=== PATIENT | male | born 1995 | race Caucasian/White ===

== ENCOUNTER 2016-12-13 01:37 | Emergency (ER) | payer OTHER ==
[~2016-12-13] VITALS: Ht 162.6 cm; Wt 53.5 kg
[~2016-12-13 01:37] MED LIST: ALPR0.5T PO; DIVA500T7 PO; ZIPR40CA2 PO
[2016-12-13 01:40] VITALS: Ht 162.6 cm; Wt 53.5 kg
--- NOTE | 2016-12-13 01:55 | ERD ---
ER Documentation Chief Complaint Chief Complaint Dizziness HPI The patient is a 21-year-old male, presenting to the ER because of dizziness after he took his mother marijuana and PCP pill around 9 PM. He took a bus to the hospital. He denies syncope, near syncope, neck pain, chest pain, dyspnea, abdominal pain. He smokes socially has history of amphetamine abuse, denies drinking Past medical history: Schizophrenia Past surgical history: None ROS All systems reviewed and are negative except as per history of present illness. Medications Home Meds Active Scripts Ziprasidone* (Geodon*) 40 Mg Capsule, 40 MG PO BID, #30 CAP Prov:WINSTON LYTHIA 01/28/16 Divalproex Sodium* (Depakote*) 500 Mg Tablet.dr, 500 MG PO BID, #30 TAB Prov:TIGRE LY 01/28/16 Alprazolam* (Xanax*) 0.5 Mg Tab, 0.5 MG PO Q8H Y for ANXIETY, #14 TAB Prov:LOLLY BARON DO 10/23/15 Reported Medications Divalproex Sodium* (Depakote ER*) 500 Mg Tabsr, 1000 MG PO DAILY, #60 TAB.SA 09/11/15 Allergies Allergies: Coded Allergies: chocolate flavor (Verified Allergy, Unknown, "twitching", 09/20/15) peanut (Verified Allergy, Unknown, "twitching", 09/20/15) trazodone (Verified Allergy, Unknown, 01/25/16) PMhx/Soc History of Surgery: No Anesthesia Reaction: No Hx Neurological Disorder: No Hx Respiratory Disorders: No Hx Cardiac Disorders: No Hx Psychiatric Problems: Yes (Schizophrenia) Hx Miscellaneous Medical Probl: No Hx Alcohol Use: Yes Hx Substance Use: Yes (Marijuana, Cocaine) Hx Tobacco Use: Yes Physical Exam Vitals Vital Signs Date Time Temp Pulse Resp B/P Pulse Ox O2 Delivery O2 Flow Rate FiO2 12/13/16 01:40 96.9 85 20 129/65 98 Physical Exam Const: No acute distress. Head: Atraumatic. Eyes: Normal Conjunctiva. ENT: Normal External Ears, Nose and Mouth. Neck: Full range of motion. No meningismus. Resp: Clear to auscultation bilaterally. Cardio: Regular rate and rhythm. Abd: Soft, non distended, normal bowel sounds, non tender. Skin: No petechiae or rashes. Back: No midline or flank tenderness. Ext: No cyanosis, or edema. Neur: Awake and alert. No focal deficit Psych: Normal Mood and Affect. Result Diagram: 12/13/1621912/13/16219 Results 24 hrs Laboratory Tests Test 12/13/16 02:20 12/13/16 03:20 White Blood Count 7.510^3/ul Red Blood Count 4.4310^6/ul Hemoglobin 12.3g/dl Hematocrit 37.2% Mean Corpuscular Volume 84.0fl Mean Corpuscular Hemoglobin 27.8pg Mean Corpuscular Hemoglobin Concent 33.1g/dl Red Cell Distribution Width 14.6% Platelet Count 54542^3/UL Mean Platelet Volume 10.2fl Neutrophils % 46.9% Lymphocytes % 42.0% Monocytes % 8.1% Eosinophils % 2.3% Basophils % 0.4% Nucleated Red Blood Cells % 0.0/100WBC Neutrophils # 3.510^3/ul Lymphocytes # 3.210^3/ul Monocytes # 0.610^3/ul Eosinophils # 0.210^3/ul Basophils # 0.010^3/ul Nucleated Red Blood Cells # 0.010^3/ul Sodium Level 140mmol/L Potassium Level 3.9mmol/L Chloride Level 105mmol/L Carbon Dioxide Level 25mmol/L Anion Gap 14 Blood Urea Nitrogen 23mg/dl Creatinine 0.86mg/dl Glucose Level 101mg/dl Calcium Level 9.1mg/dl Ethyl Alcohol Level < 10.0mg/dl Urine Opiates Screen Negative Urine Barbiturates Negative Urine Amphetamines Screen Negative Urine Benzodiazepines Screen Negative Urine Cocaine Screen Negative Urine Cannabinoids Negative Current Medications Medications (Trade) Dose Ordered Sig/Sandy Route PRN Reason Start Time Stop Time Status Last Admin Dose Admin Sodium Chloride (NS) 1,000 ml @ 1,000 mls/hr Q1H ONCE IV 12/13/16 02:30 12/13/16 03:29 DC 12/13/16 02:24 Meclizine HCl (Antivert) 25 mg ONCE ONCE PO 12/13/16 02:30 12/13/16 02:31 DC 12/13/16 02:58 Procedures/MDM EKG: Read by emergency physician Rate/Rhythm: Normal Sinus Rhythm 74 beats/min QRS, ST, T-waves: No ST elevation, no T inversion Impression: Normal EKG MEDICAL MAKING DECISION: The patient is a 21-year-old male, presenting with acute dizziness unclear etiology he was treated with 1 L normal saline for clinical dehydration, Antivert 25 mg p.o. for dizziness with good response. The differential diagnoses considered include but are not limited to dehydration , electrolyte imbalance, psychiatric illness, anxiety attack, panic attack Departure Diagnosis: Primary Impression: Dizziness Additional Impressions: Dehydration Anemia Condition: Good Comments I discussed the findings with the patient. I advised the patient to follow-up with the primary physician in about 1-2 days, sooner if needed and return if any concern. VARUN FARRIS MD Dec 13, 2016 01:55
[2016-12-13] MEDS ORDERED: MECLIZINE 12.5 MG TAB PO ONE (02:30)
[2016-12-13] MEDS ORDERED: SOD CHLORIDE 0.9% 1,000 ML IV ONE (02:30)
[2016-12-13 02:48] LABS: BASOPHILS % 0.4 % (0.0-2.0); EOSINOPHILS # 0.2 10^3/ul (0.0-0.5); EOSINOPHILS % 2.3 % (0.0-7.0); HEMATOCRIT 37.2 % (42.0-52.0); HEMOGLOBIN 12.3 g/dl (14.0-18.0); LYMPHOCYTES # 3.2 10^3/ul (0.8-2.9); MEAN CORPUSCULAR HEMOGLOBIN 27.8 pg (29.0-33.0); MEAN CORPUSCULAR HGB CONC 33.1 g/dl (32.0-37.0); MEAN PLATELET VOLUME 10.2 fl (7.4-10.4); MONOCYTE # 0.6 10^3/ul (0.3-0.9); MONOCYTES % 8.1 % (0.0-11.0); NEUTROPHIL # 3.5 10^3/ul (1.6-7.5); NEUTROPHILS % 46.9 % (39.0-77.0); PLATELET COUNT 207 10^3/UL (140-415); RED BLOOD COUNT 4.43 10^6/ul (4.70-6.10); RED CELL DISTRIBUTION WIDTH 14.6 % (11.5-14.5); WHITE BLOOD COUNT 7.5 10^3/ul (4.8-10.8)
[2016-12-13 03:09] LABS: ANION GAP 14 (8-16); BLOOD UREA NITROGEN 23 mg/dl (7-20); CALCIUM 9.1 mg/dl (8.4-10.2); CARBON DIOXIDE 25 mmol/L (21-31); CHLORIDE 105 mmol/L (97-110); CREATININE 0.86 mg/dl (0.61-1.24); GLUCOSE 101 mg/dl (70-220); POTASSIUM 3.9 mmol/L (3.5-5.1); SODIUM 140 mmol/L (135-144)
[2016-12-13 03:43] LABS: ETHANOL < 10.0 mg/dl
[2016-12-13 04:22] LABS: BARBITURATES Negative (NEGATIVE); BENZODIAZEPINES Negative (NEGATIVE); CANNABINOIDS Negative (NEGATIVE); COCAINE Negative (NEGATIVE); OPIATES Negative (NEGATIVE)
[2016-12-13 04:45] VITALS: BP 123/59; PULSE 68; RESP 20; TEMP 98.3
== END 2016-12-13 04:46 | disposition home or self-care (01) ==
LOC: E/R 01:37
DX: R42 Dizziness and giddiness (principal); E86.0 Dehydration; D64.9 Anemia, unspecified; Z87.891 Personal history of nicotine dependence
CPT/HCPCS: 80048; 80306; 80307; 85025; 96360; J7030; Z7502; Z7610; 93005

== ENCOUNTER 2017-01-12 17:33 | Emergency (ER) | payer OTHER ==
[~2017-01-12] VITALS: Ht 165.1 cm; Wt 53.0 kg
[2017-01-12 17:34] VITALS: Ht 165.1 cm; Wt 53.0 kg
[2017-01-12] MEDS ORDERED: OLANZAPINE (ODT) 5 MG TAB ODT ONE (18:00)
[2017-01-12] MEDS ORDERED: LORAZEPAM 1 MG TAB PO ONE (18:00)
[2017-01-12 18:28] LABS: BASOPHILS % 0.2 % (0.0-2.0); EOSINOPHILS % 0.1 % (0.0-7.0); HEMATOCRIT 38.8 % (42.0-52.0); HEMOGLOBIN 12.9 g/dl (14.0-18.0); LYMPHOCYTES # 1.8 10^3/ul (0.8-2.9); LYMPHOCYTES % 14.4 % (15.0-51.0); MEAN CORPUSCULAR HEMOGLOBIN 27.6 pg (29.0-33.0); MEAN CORPUSCULAR HGB CONC 33.2 g/dl (32.0-37.0); MEAN CORPUSCULAR VOLUME 83.1 fl (82.0-101.0); MEAN PLATELET VOLUME 11.2 fl (7.4-10.4); MONOCYTE # 0.9 10^3/ul (0.3-0.9); MONOCYTES % 7.2 % (0.0-11.0); NEUTROPHIL # 9.5 10^3/ul (1.6-7.5); NEUTROPHILS % 77.6 % (39.0-77.0); PLATELET COUNT 198 10^3/UL (140-415); RED BLOOD COUNT 4.67 10^6/ul (4.70-6.10); RED CELL DISTRIBUTION WIDTH 14.8 % (11.5-14.5); WHITE BLOOD COUNT 12.3 10^3/ul (4.8-10.8)
[2017-01-12 18:35] LABS: ADD UMIC NO; UR ASCORBIC ACID 40 mg/dL (NEGATIVE); UR BILIRUBIN (Dip) NEGATIVE (NEGATIVE); UR BLOOD (Dip) NEGATIVE (NEGATIVE); UR CLARITY CLEAR (CLEAR); UR COLOR YELLOW (YELLOW); UR GLUCOSE (Dip) NEGATIVE (NEGATIVE); UR KETONES (Dip) NEGATIVE (NEGATIVE); UR LEUKOCYTE ESTERASE (Dip) NEGATIVE Leu/ul (NEGATIVE); UR NITRITE (Dip) NEGATIVE (NEGATIVE); UR TOTAL PROTEIN (Dip) NEGATIVE (NEGATIVE); UR UROBILINOGEN (Dip) 1+ mg/dL (NEGATIVE)
[2017-01-12 18:51] LABS: ALANINE AMINOTRANSFERASE 28 IU/L (13-69); ALBUMIN 4.5 g/dl (3.3-4.9); ALKALINE PHOSPHATASE 74 IU/L (42-121); ANION GAP 19 (8-16); ASPARTATE AMINO TRANSFERASE 28 IU/L (15-46); BILIRUBIN,INDIRECT 0.3 mg/dl (0-1.1); BILIRUBIN,TOTAL 0.3 mg/dl (0.2-1.3); BLOOD UREA NITROGEN 17 mg/dl (7-20); CALCIUM 9.9 mg/dl (8.4-10.2); CARBON DIOXIDE 29 mmol/L (21-31); CHLORIDE 104 mmol/L (97-110); CREATININE 0.91 mg/dl (0.61-1.24); GLUCOSE 112 mg/dl (70-220); POTASSIUM 4.4 mmol/L (3.5-5.1); SODIUM 148 mmol/L (135-144); TOTAL PROTEIN 7.7 g/dl (6.1-8.1)
[2017-01-12 18:52] LABS: ETHANOL < 10.0 mg/dl
[2017-01-12 18:54] LABS: BENZODIAZEPINES Negative (NEGATIVE)
[2017-01-12 18:58] LABS: BARBITURATES Negative (NEGATIVE); CANNABINOIDS Negative (NEGATIVE); COCAINE Negative (NEGATIVE); OPIATES Negative (NEGATIVE)
--- NOTE | 2017-01-12 19:17 | PSY ---
Date/Time of Note Date/Time of Note DATE: 01/12/17 TIME: 22:13 Psychiatric Subjective Eval Consent Pt consented to telemedicine: Yes Subjective Evaluation Patient location: emergency Chief Complaint: PSYCH EVAL History of present illness HPI: 21 yo male with unknown psych hx, walked in to ER. Was noted to be paranoid and disorganized. met with pt. Pt is severely disorganized and distracted by internal stimuli to which he is responding. Severe thought blocking. The few answers he was able to give were bizarre or irrelevant, such as that he came in for an injection from a dog bite in 2013, and that "Kulwant Mouse" is out to get him. Also assumes weird postures, nearly catatonic in nature, positioned in gurney without legs open as if he were an and were going to have a diaper change. Past Psych Hx/PMHx,/Meds: unable to obtain this info due to pt's disorganization All: chocolate, peanuts, trazodone MSE: as above, odd, bizaree, catatonic like postures, paranoid, disorganized, distracted by internal stimuli, severe thought blocking incoherent and irrelevant Imp: 21 yo gravely disabled 5150 psych admit zyprexa 5mg po bid and 5mg po prn moderate agitation for severe agitation chlorpromazine 25mg im prn Medical history Problems Medical Problems: (1) Anemia Status: Acute (2) Anemia Status: Acute (3) Anxiety disorder Status: Acute (4) Anxiety reaction Status: Acute (5) Dehydration Status: Acute (6) Dizziness Status: Acute (7) Patient left without being seen Status: Acute (8) Psychosis Status: Acute (9) Schizophrenia Status: Acute (10) Suicidal ideation Status: Acute Allergies: Coded Allergies: chocolate flavor (Verified Allergy, Unknown, "twitching", 09/20/15) peanut (Verified Allergy, Unknown, "twitching", 09/20/15) trazodone (Verified Allergy, Unknown, 01/25/16) Psychiatric Objective Eval Mental Status Examination: Laboratory Results Laboratory Tests Test 01/12/17 18:15 White Blood Count 12.310^3/ul Red Blood Count 4.6710^6/ul Hemoglobin 12.9g/dl Hematocrit 38.8% Mean Corpuscular Volume 83.1fl Mean Corpuscular Hemoglobin 27.6pg Mean Corpuscular Hemoglobin Concent 33.2g/dl Red Cell Distribution Width 14.8% Platelet Count 86101^3/UL Mean Platelet Volume 11.2fl Neutrophils % 77.6% Lymphocytes % 14.4% Monocytes % 7.2% Eosinophils % 0.1% Basophils % 0.2% Nucleated Red Blood Cells % 0.0/100WBC Neutrophils # 9.510^3/ul Lymphocytes # 1.810^3/ul Monocytes # 0.910^3/ul Eosinophils # 0.010^3/ul Basophils # 0.010^3/ul Nucleated Red Blood Cells # 0.010^3/ul Urine Color YELLOW Urine Clarity CLEAR Urine pH 7.0 Urine Specific Rogers 1.020 Urine Ketones NEGATIVEmg/dL Urine Nitrite NEGATIVEmg/dL Urine Bilirubin NEGATIVEmg/dL Urine Urobilinogen 1+mg/dL Urine Leukocyte Esterase NEGATIVELeu/ul Urine Hemoglobin NEGATIVEmg/dL Urine Glucose NEGATIVEmg/dL Urine Total Protein NEGATIVEmg/dl Sodium Level 148mmol/L Potassium Level 4.4mmol/L Chloride Level 104mmol/L Carbon Dioxide Level 29mmol/L Anion Gap 19 Blood Urea Nitrogen 17mg/dl Creatinine 0.91mg/dl Glucose Level 112mg/dl Calcium Level 9.9mg/dl Total Bilirubin 0.3mg/dl Direct Bilirubin 0.00mg/dl Indirect Bilirubin 0.3mg/dl Aspartate Amino Transf (AST/SGOT) 28IU/L Alanine Aminotransferase (ALT/SGPT) 28IU/L Alkaline Phosphatase 74IU/L Total Protein 7.7g/dl Albumin 4.5g/dl Globulin 3.20g/dl Albumin/Globulin Ratio 1.40 Urine Opiates Screen Negative Urine Barbiturates Negative Urine Amphetamines Screen Negative Urine Benzodiazepines Screen Negative Urine Cocaine Screen Negative Urine Cannabinoids Negative Ethyl Alcohol Level < 10.0mg/dl YAQUELIN HOANG Jan 12, 2017 19:17
[2017-01-12] MEDS ORDERED: LORAZEPAM 2 MG INJ ONE (19:40)
--- NOTE | 2017-01-12 19:47 | RADRPT ---
PROCEDURE: XR, Chest. CLINICAL INDICATION: Cough. TECHNIQUE: AP chest COMPARISON: Chest, 09/21/2015. FINDINGS: There is no acute infiltrate in the lungs. No pleural effusion. The heart is not enlarged. IMPRESSION: 1. Unremarkable chest x-ray. RPTAT: GG .García Mcgee MD, Date Time Electronically viewed and signed by .García Mcgee MD, on 01/12/2017 19:46 .Y/
[2017-01-12] MEDS ORDERED: LORAZEPAM 2 MG INJ IM ONE (20:00)
--- NOTE | 2017-01-12 20:03 | ERD ---
ER Documentation Chief Complaint Chief Complaint PSYCH EVAL HPI This is a 21-year-old male who presents for evaluation. The patient is extremely disorganized. Looking through electronic medical record the patient has multiple visits for psychiatric related issues. The patient states "I am werewolf". Further history is unable to be obtained. The patient denies any fevers chills chest pain or shortness of breath. ROS All systems reviewed and are negative except as per history of present illness. Medications Home Meds Active Scripts Ziprasidone* (Geodon*) 40 Mg Capsule, 40 MG PO BID, #30 CAP Prov:TIGRE LY 01/28/16 Divalproex Sodium* (Depakote*) 500 Mg Tablet.dr, 500 MG PO BID, #30 TAB Prov:TIGRE LY 01/28/16 Alprazolam* (Xanax*) 0.5 Mg Tab, 0.5 MG PO Q8H Y for ANXIETY, #14 TAB Prov:LOLLY BARON DO 10/23/15 Reported Medications Divalproex Sodium* (Depakote ER*) 500 Mg Tabsr, 1000 MG PO DAILY, #60 TAB.SA 09/11/15 Allergies Allergies: Coded Allergies: chocolate flavor (Verified Allergy, Unknown, "twitching", 09/20/15) peanut (Verified Allergy, Unknown, "twitching", 09/20/15) trazodone (Verified Allergy, Unknown, 01/25/16) PMhx/Soc History of Surgery: No Anesthesia Reaction: No Hx Neurological Disorder: No Hx Respiratory Disorders: No Hx Cardiac Disorders: No Hx Psychiatric Problems: Yes (Schizophrenia) Hx Miscellaneous Medical Probl: No Hx Alcohol Use: Yes Hx Substance Use: Yes (Marijuana, Cocaine, PCP) Hx Tobacco Use: Yes Smoking Status: Unknown if ever smoked FmHx Family History: No diabetes Physical Exam Vitals Vital Signs Date Time Temp Pulse Resp B/P Pulse Ox O2 Delivery O2 Flow Rate FiO2 01/12/17 17:34 98.0 78 19 143/64 10 Physical Exam General: Well developed, well nourished, no acute distress Head: Normocephalic, atraumatic. Eyes: Pupils equally reactive, EOM intact ENT: Moist mucous membranes Neck: Supple, no lymphadenopathy Respiratory: Lungs clear bilaterally, no distress Cardiovascular: RRR, no murmurs, rubs, or gallops Abdominal: Soft, non-tender, non-distended, no peritoneal signs : Deferred MSK: No edema, no unilateral swelling, 5/5 strength Neurologic: Poorly cooperative but moving all extremities, no meningismus Skin: No rash Psych: Extremely disorganized, denies SI or HI Result Diagram: 01/12/17181401/12/171814 Results 24 hrs Laboratory Tests Test 01/12/17 18:15 White Blood Count 12.310^3/ul Red Blood Count 4.6710^6/ul Hemoglobin 12.9g/dl Hematocrit 38.8% Mean Corpuscular Volume 83.1fl Mean Corpuscular Hemoglobin 27.6pg Mean Corpuscular Hemoglobin Concent 33.2g/dl Red Cell Distribution Width 14.8% Platelet Count 09774^3/UL Mean Platelet Volume 11.2fl Neutrophils % 77.6% Lymphocytes % 14.4% Monocytes % 7.2% Eosinophils % 0.1% Basophils % 0.2% Nucleated Red Blood Cells % 0.0/100WBC Neutrophils # 9.510^3/ul Lymphocytes # 1.810^3/ul Monocytes # 0.910^3/ul Eosinophils # 0.010^3/ul Basophils # 0.010^3/ul Nucleated Red Blood Cells # 0.010^3/ul Urine Color YELLOW Urine Clarity CLEAR Urine pH 7.0 Urine Specific [place] 1.020 Urine Ketones NEGATIVEmg/dL Urine Nitrite NEGATIVEmg/dL Urine Bilirubin NEGATIVEmg/dL Urine Urobilinogen 1+mg/dL Urine Leukocyte Esterase NEGATIVELeu/ul Urine Hemoglobin NEGATIVEmg/dL Urine Glucose NEGATIVEmg/dL Urine Total Protein NEGATIVEmg/dl Sodium Level 148mmol/L Potassium Level 4.4mmol/L Chloride Level 104mmol/L Carbon Dioxide Level 29mmol/L Anion Gap 19 Blood Urea Nitrogen 17mg/dl Creatinine 0.91mg/dl Glucose Level 112mg/dl Calcium Level 9.9mg/dl Total Bilirubin 0.3mg/dl Direct Bilirubin 0.00mg/dl Indirect Bilirubin 0.3mg/dl Aspartate Amino Transf (AST/SGOT) 28IU/L Alanine Aminotransferase (ALT/SGPT) 28IU/L Alkaline Phosphatase 74IU/L Total Protein 7.7g/dl Albumin 4.5g/dl Globulin 3.20g/dl Albumin/Globulin Ratio 1.40 Urine Opiates Screen Negative Urine Barbiturates Negative Urine Amphetamines Screen Negative Urine Benzodiazepines Screen Negative Urine Cocaine Screen Negative Urine Cannabinoids Negative Ethyl Alcohol Level < 10.0mg/dl Current Medications Medications (Trade) Dose Ordered Sig/Sandy Route PRN Reason Start Time Stop Time Status Last Admin Dose Admin Olanzapine (Zyprexa Zydis) 5 mg ONCE ONCE ODT 01/12/17 18:00 01/12/17 18:01 DC 01/12/17 18:12 Lorazepam (Ativan) 1 mg ONCE ONCE PO 01/12/17 18:00 01/12/17 18:01 DC 01/12/17 18:12 Lorazepam (Ativan) 2 mg ONCE ONCE IM 01/12/17 20:00 01/12/17 20:01 01/12/17 19:46 Olanzapine (Zyprexa Zydis) 5 mg BID ODT 01/13/17 08:00 UNV Lorazepam (Ativan) 2 mg STK-MED ONCE .ROUTE 01/12/17 19:40 01/12/17 19:41 DC Procedures/MDM EKG/DIAGNOSTIC IMAGING: Chest x-ray: I reviewed and interpreted a 1 view of the chest Mediastinum: No enlargement Cardiac silhouette: No cardiomegaly Airspace: Clear lung wilson bilaterally without evidence of pneumothorax Bones: No evidence of fracture LAB INTERPRETATION: Slight leukocytosis that is nonspecific MEDICAL DECISION MAKING: The patient's presentation is consistent with underlying psychiatric illness and likely exacerbation of this illness and/or psychosis. I have a much lower clinical concern for delirium or acute organic pathology such as toxicologic, metabolic, ischemic, intracranial hemorrhage, infectious process. However, we must rule this out prior to relying a diagnosis of underlying psychiatric illness. The patient's workup will include medical screening examination, laboratory analysis, and diagnostic imaging such as EKG, chest x-ray or CT brain as indicated. If the patient's medical examination and laboratory analysis do not reveal acute organic pathology the patient will be medically cleared for psychiatric evaluation. ER COURSE: The patient was initially given Zyprexa and Ativan. The patient's laboratory analysis, diagnostic imaging do not suggest an acute organic pathology. At this time I believe the patient's presentation is very consistent with underlying psychiatric illness. The patient is medically cleared for psychiatric evaluation. The patient was evaluated by telemetry medicine psychiatry who recommends 5150 hold for grave disability. I agree. They recommend Zyprexa 5 mg twice daily which has been placed to start tomorrow. The patient did attempt to elope after the evaluation and was given 2 mg IM Ativan. He is resting comfortably in bed and protecting his airway. He did have slight leukocytosis that was nonspecific and likely stress related. Chest x-ray to rule out pneumonia was negative. I kept the patient and/or family informed of laboratory and diagnostic imaging results throughout the emergency room course. CONSULTATION: Psychiatric consultation: Telemetry medicine psychiatry has been consulted on this case to evaluate the patient for possible acute psychiatric illness that would require inpatient hospitalization. DISPOSITION PLAN: Pending PET team evaluation Departure Diagnosis: Primary Impression: Acute psychosis Additional Impression: Grave disability Condition: Stable ALDO HERNANDEZ MD Jan 12, 2017 20:03
--- NOTE | 2017-01-13 06:31 | EN ---
Date/Time of Note Date/Time of Note DATE: 01/13/17 TIME: 06:31 ER Progress Note Observation Note: Time: 8 hours S: This patient was signed out to me by the overnight physician pending psychiatric placement. Briefly, he is a 21-year-old male with a suspicion of an underlying psychiatric illness. He was extremely disorganized on initial presentation and at one point thought that he was a werewolf reportedly. The patient was evaluated by tele-psychiatry who felt that the patient did warrant a psychiatric hold. Family Hx: Unable to obtain secondary to patient's altered status. O: Vital signs reviewed Const: No apparent distress, well-developed, well-nourished, sleeping Head: Normocephalic, Atraumatic Eyes: Normal Conjunctiva. ENT: Normal External Ears, Nose and Mouth. Neck: No meningismus. Resp: Symmetric chest wall ybarra, no audible wheezes Cardio: Deferred Abd: Non distended Skin: No petechiae or rashes Back: Deferred Ext: No cyanosis, or edema Neur: No facial droop. Moves all extremities spontaneously. Psych: Sleeping, will open eyes to voice, but would not speak for me, just wanted to sleep, well appearing otherwise A: Psychosis P: Presentation does not reveal any evidence of clinical decompensation. The patient still requires a psychiatric hold. The bed search will continue and the patient will be placed once a bed is found. OBI BENTLEY MD Jan 13, 2017 06:31
[2017-01-13] MEDS ORDERED: OLANZAPINE (ODT) 5 MG TAB ODT SCH (08:00)
[2017-01-13] MEDS ORDERED: LORAZEPAM 2 MG INJ IV ONE (16:30)
[2017-01-13] MEDS ORDERED: HALOPERIDOL 5 MG INJ IM ONE (16:30)
[2017-01-13 20:15] VITALS: BP 116/56; PULSE 85; RESP 16; TEMP 98.1
== END 2017-01-13 20:25 ==
LOC: E/R 17:33
DX: F23 Brief psychotic disorder (principal); R40.2242 Coma scale, best verbal response, confused conversation, at arrival to emergency department; F79 Unspecified intellectual disabilities; R40.2142 Coma scale, eyes open, spontaneous, at arrival to emergency department; R40.2362 Coma scale, best motor response, obeys commands, at arrival to emergency department; R05 Cough; Z87.891 Personal history of nicotine dependence; Z91.010 Allergy to peanuts
CPT/HCPCS: 36415; 71010; 80053; 80306; 80307; 81003; 85025; 96372; 96374; J1630; J2060; Z7502; Z7610